=== PATIENT | male | born 1970 | race Caucasian/White ===

== ENCOUNTER → 2016-12-23 | Outpatient (CLI) | payer OTHER ==
[~2016-12-23] VITALS: Ht 180.3 cm; Wt 83.9 kg
[~2016-12-23] MED LIST: ACET500C PO; FLON0.054; FLON1SPR; LITH45TASA PO; MOTR200T44 PO; NEXI20GR PO; NORCOTAB PO; NS 1,000 ML IV SCH; PROPOFOL 200 MG/20 ML VIAL As Ordered ONE; RITA10TA PO
--- NOTE | 2016-12-23 14:04 | ROOR ---
Patient Name: Forest Forbes Procedure Date: 12/23/2016 1:43 PM Date of : 1970 Age: 46 Room: [facility] Gender: Male Note Status: Finalized Procedure: Colonoscopy Indications: Screening for colorectal malignant neoplasm Providers: Lam MORA MD Referring MD: HUGO ARIAS MD Requesting Provider: Medicines: Monitored Anesthesia Care Complications: No immediate complications. Procedure: Pre-Anesthesia Assessment: - The heart rate, respiratory rate, oxygen saturations, blood pressure, adequacy of pulmonary ventilation, and response to care were monitored throughout the procedure. The Colonoscope was introduced through the anus and advanced to the terminal ileum, with identification of the appendiceal orifice and IC valve. The colonoscopy was performed without difficulty. The patient tolerated the procedure well. The quality of the bowel preparation was fair. The bowel preparation used was SUPREP and magnesium citrate. Findings: The perianal and digital rectal examinations were normal. (EXAM: Complete, PREP: Suboptimal) The colon (entire examined portion) appeared normal. Impression: - (EXAM: Complete, PREP: Suboptimal) - The entire examined colon is normal. - No specimens collected. Recommendation: - Repeat colonoscopy in 5 years because the bowel preparation was suboptimal. - Repeat colonoscopy in 5 years for surveillance based on personal history of previous adenomatous polyps. Lam Mora MD Lam MORA MD 12/23/2016 2:04:06 PM This report has been signed electronically. Number of Addenda: 0 Note Initiated On: 12/23/2016 1:43 PM Estimated Blood Loss: Estimated blood loss: none.
[2016-12-23 14:30] VITALS: BP 128/86
== END | disposition home or self-care (01) ==
LOC: M OPP 12:06
PROVIDERS: ATTEND Internal Medicine Gastroenterology
DX: R10.9 Unspecified abdominal pain (principal); R19.5 Other fecal abnormalities; Z80.3 Family history of malignant neoplasm of breast; M19.90 Unspecified osteoarthritis, unspecified site; G47.30 Sleep apnea, unspecified; M51.9 Unspecified thoracic, thoracolumbar and lumbosacral intervertebral disc disorder; F32.9 Major depressive disorder, single episode, unspecified; Z88.8 Allergy status to other drugs, medicaments and biological substances; Z79.899 Other long term (current) drug therapy

== ENCOUNTER 2018-03-28 09:33 | Emergency (ER) | payer OTHER ==
[2018-03-28] MEDS: ACETAMINOPH W/CODEINE #3 TAB UD PO (10:54)
[2018-03-28] MEDS: ALBUTEROL SULFATE 2.5 MG/0.5 ML INH NEB SOLN NEB (10:54)
[2018-03-28] MEDS: BENZONATATE 100 MG CAP PO (10:54)
[2018-03-28 11:03] LABS: BASO % 0.5 % (0.0-1.0); EOS # 0.2 10^3/uL (0.0-0.50); EOS % 2.8 % (0.0-3.0); HEMATOCRIT 51.4 % (42.0-52.0); HEMOGLOBIN 17.7 g/dl (13.5-17.5); IMMATURE GRANULOCYTE % 0.5 % (0-3.0); LYMPH # 1.4 10^3/uL (1.5-4.5); LYMPH % 23.3 % (24.0-44.0); MEAN CORPUSCULAR HEMOGLOBIN 30.7 pg (27.0-33.0); MEAN CORPUSCULAR HGB CONC 34.4 g/dl (32.0-36.5); MEAN CORPUSCULAR VOLUME 89.1 fl (80.0-96.0); MONO # 0.9 10^3/uL (0.0-0.8); NEUTROPHILS # 3.4 10^3/uL (1.8-7.7); NEUTROPHILS % 57.9 % (36.0-66.0); PLATELET COUNT, AUTOMATED 208 10^3/uL (150-450); RED BLOOD COUNT 5.77 10^6/uL (4.30-6.10); RED CELL DISTRIBUTION WIDTH 12.6 % (11.5-14.5); WHITE BLOOD COUNT 5.8 10^3/uL (4.0-10.0)
[2018-03-28 11:31] LABS: ANION GAP 8 MEQ/L (8-16); BLOOD UREA NITROGEN 12 MG/DL (7-18); CALCIUM LEVEL 9.1 MG/DL (8.5-10.1); CARBON DIOXIDE LEVEL 27 MEQ/L (21-32); CHLORIDE LEVEL 105 MEQ/L (98-107); CREATININE FOR GFR 1.34 MG/DL (0.70-1.30); GLOMERULAR FILTRATION RATE > 60.0 (>60); GLUCOSE, FASTING 80 MG/DL (70-100); POTASSIUM SERUM 4.1 MEQ/L (3.5-5.1); SODIUM LEVEL 140 MEQ/L (136-145)
== END 2018-03-28 12:07 | disposition home or self-care (01) ==
LOC: M ED 09:33
DX: J06.9 Acute upper respiratory infection, unspecified (principal); Z79.899 Other long term (current) drug therapy; Z88.8 Allergy status to other drugs, medicaments and biological substances
CPT/HCPCS: 71046

== ENCOUNTER 2018-10-21 12:18 | Emergency (ER) | payer OTHER ==
[2018-10-21 15:03] LABS: KETONE, URINE AUTO RFX NEGATIVE (NEGATIVE); LEUKOCYTE ESTERASE UR AUTO RFX NEGATIVE (NEGATIVE); MUCUS, URINE RFX SMALL (NEGATIVE); NITRITE, URINE AUTO RFX NEGATIVE (NEGATIVE); RBC, URINE AUTO RFX 2 /HPF (0-3); SPECIFIC GRAVITY UR AUTO RFX 1.012 (1.002-1.035); SQUAM EPITHELIAL CELL UR AURFX 0 /HPF (0-6); WBC, URINE AUTO RFX 0 /HPF (0-3)
== END 2018-10-21 15:16 | disposition home or self-care (01) ==
LOC: M ED 12:18
DX: N41.9 Inflammatory disease of prostate, unspecified (principal); M19.90 Unspecified osteoarthritis, unspecified site; F90.9 Attention-deficit hyperactivity disorder, unspecified type; Z79.899 Other long term (current) drug therapy; Z88.8 Allergy status to other drugs, medicaments and biological substances
CPT/HCPCS: 81001

== ENCOUNTER 2019-06-13 19:01 | Emergency (ER) | payer OTHER ==
[~2019-06-13] VITALS: Ht 180.3 cm; Wt 84.1 kg
[~2019-06-13 19:01] MED LIST changes: +CIPR-249 PO; +HYDR-3715 PO; +METH1CHW3 PO; +METH20TA29 PO; -NORCOTAB PO; -NS 1,000 ML IV SCH; +PROAAER10 INH; -PROPOFOL 200 MG/20 ML VIAL As Ordered ONE; +RITA20TA PO; +TESS100C PO; +TRAZ1TAB12 PO; +VITA1CAP14 PO
[2019-06-13 19:02] VITALS: BP 132/73
[2019-06-13] MEDS ORDERED: METH-1022 (19:09)
[2019-06-13] MEDS ORDERED: TRAM50TA2 (19:09)
[2019-06-13] MEDS ORDERED: COLA100C5 PO (19:09)
== END 2019-06-13 20:22 | disposition home or self-care (01) ==
LOC: M ED 19:01
DX: N99.840 Postprocedural hematoma of a genitourinary system organ or structure following a genitourinary system procedure (principal); K21.9 Gastro-esophageal reflux disease without esophagitis; F90.9 Attention-deficit hyperactivity disorder, unspecified type; M51.9 Unspecified thoracic, thoracolumbar and lumbosacral intervertebral disc disorder; Z85.46 Personal history of malignant neoplasm of prostate; Z88.8 Allergy status to other drugs, medicaments and biological substances

== ENCOUNTER 2019-08-30 10:29 | Day surgery (SDC) | payer OTHER ==
[~2019-08-30] VITALS: Ht 180.3 cm; Wt 81.1 kg
[~2019-08-30 10:29] MED LIST changes: +COLA100C5 PO; +LIDOCAINE 2% INJ 100 MG/5 ML SDV (FOR ANES.) As Ordered ONE; +METH-1022; +NS 1,000 ML IV ONE; +PROPOFOL 200 MG/20 ML VIAL As Ordered ONE; +TRAM50TA2; +TRAZ10TA PO; -TRAZ1TAB12 PO
--- NOTE | 2019-08-30 11:47 | ROOR ---
Patient Name: Forest Forbes Procedure Date: 08/30/2019 11:19 AM Date of : 1970 Age: 48 Room: [facility] Gender: Male Note Status: Finalized Procedure: Total Colonoscopy to Cecum Indications: High risk colon cancer surveillance: Personal history of colonic polyps, Last colonoscopy: 2013 Providers: Vamshi García MD Referring MD: HUGO ARIAS MD Requesting Provider: Medicines: Monitored Anesthesia Care Complications: No immediate complications. Procedure: Pre-Anesthesia Assessment: - The heart rate, respiratory rate, oxygen saturations, blood pressure, adequacy of pulmonary ventilation, and response to care were monitored throughout the procedure. The Colonoscope was introduced through the anus and advanced to the cecum, identified by appendiceal orifice and ileocecal valve. The colonoscopy was performed without difficulty. The patient tolerated the procedure well. The quality of the bowel preparation was excellent. Findings: The perianal and digital rectal examinations were normal. Non-bleeding internal hemorrhoids were found during retroflexion. The hemorrhoids were small and Grade I (internal hemorrhoids that do not prolapse). Scattered small-mouthed diverticula were found in the recto-sigmoid colon, sigmoid colon and descending colon. The exam was otherwise without abnormality on direct and retroflexion views. Impression: - Non-bleeding internal hemorrhoids. - Diverticulosis in the recto-sigmoid colon, in the sigmoid colon and in the descending colon. - The examination was otherwise normal on direct and retroflexion views. - No specimens collected. - The exam was otherwise normal to the cecum. Recommendation: - Patient has a contact number available for emergencies. The signs and symptoms of potential delayed complications were discussed with the patient. Return to normal activities tomorrow. Written discharge instructions were provided to the patient. - High fiber diet. - Discharge patient to home. - Continue present medications. - Repeat colonoscopy in 5 years for surveillance. - Return to referring physician. - The findings and recommendations were discussed with the patient's family. Vamshi García MD Vamshi García MD 08/30/2019 11:47:17 AM Electronically signed by Vamshi García MD Number of Addenda: 0 Note Initiated On: 08/30/2019 11:19 AM Estimated Blood Loss: Estimated blood loss: none.
[2019-08-30 12:05] VITALS: BP 139/89
== END 2019-08-30 12:11 | disposition home or self-care (01) ==
LOC: M OPP 10:29
PROVIDERS: ATTEND Internal Medicine Gastroenterology
DX: Z12.11 Encounter for screening for malignant neoplasm of colon (principal); Z86.010 Personal history of colon polyps; K64.0 First degree hemorrhoids; K57.30 Diverticulosis of large intestine without perforation or abscess without bleeding; G47.30 Sleep apnea, unspecified; Z79.899 Other long term (current) drug therapy; Z88.8 Allergy status to other drugs, medicaments and biological substances; Z87.891 Personal history of nicotine dependence

== ENCOUNTER → 2020-07-05 | Outpatient (CLI) | payer OTHER ==
[~2020-07-05] MED LIST changes: +ESZO1TAB5 PO; +FLON1SPR NARES; -LIDOCAINE 2% INJ 100 MG/5 ML SDV (FOR ANES.) As Ordered ONE; -NS 1,000 ML IV ONE; +OMEP40CA97 PO; -PROPOFOL 200 MG/20 ML VIAL As Ordered ONE; -TRAZ10TA PO; +TRAZ1TAB12 PO
== END ==
LOC: M LABSMTC 11:55
PROVIDERS: ATTEND Anesthesiology
DX: Z01.812 Encounter for preprocedural laboratory examination (principal); Z20.828 Contact with and (suspected) exposure to other viral communicable diseases
CPT/HCPCS: C9803; U0003

== ENCOUNTER 2020-07-10 10:15 | Day surgery (SDC) | payer OTHER ==
[~2020-07-10] VITALS: Ht 175.3 cm; Wt 75.7 kg
[~2020-07-10 10:15] MED LIST changes: -ESZO1TAB5 PO; +LIDOCAINE 2% 100MG/5ML SDV (FOR ANES.) As Ordered ONE; +propofoL 200 MG/20 ML VIAL As Ordered ONE
[2020-07-10] MEDS ORDERED: ESZO1TAB5 PO (10:57)
[2020-07-10] MEDS ORDERED: fentaNYL 100 MCG/2 ML INJECTION (J3010) As Ordered ONE (11:06)
[2020-07-10] MEDS ORDERED: NS 1,000 ML IV ONE (11:15)
[2020-07-10 11:50] VITALS: BP 111/70
--- NOTE | 2020-07-19 11:37 | ROOR ---
Patient Name: Forest Forbes Procedure Date: 07/10/2020 8:50 AM Date of : 1970 Age: 49 Room: [facility] Gender: Male Note Status: Finalized Procedure: Upper Endoscopy + Biopsies Indications: Heartburn, Nausea with vomiting Providers: Vamshi García MD Referring MD: Frederic Silverio Requesting Provider: Medicines: Monitored Anesthesia Care Complications: No immediate complications. Procedure: Pre-Anesthesia Assessment: - The heart rate, respiratory rate, oxygen saturations, blood pressure, adequacy of pulmonary ventilation, and response to care were monitored throughout the procedure. The Endoscope was introduced through the mouth, and advanced to the second part of duodenum. The upper GI endoscopy was accomplished without difficulty. The patient tolerated the procedure well. Findings: The Z-line was regular and was found 45 cm from the incisors. No other significant abnormalities were identified in a careful examination of the stomach. Biopsies were taken with a cold forceps in the gastric antrum for Helicobacter pylori testing. The exam of the duodenum was otherwise normal. Impression: - Z-line regular, 45 cm from the incisors. - Biopsies were taken with a cold forceps for Helicobacter pylori testing. - The examination was otherwise normal. Recommendation: - Patient has a contact number available for emergencies. The signs and symptoms of potential delayed complications were discussed with the patient. Return to normal activities tomorrow. Written discharge instructions were provided to the patient. - High fiber diet. - Discharge patient to home. - Follow an antireflux regimen. - Continue present medications. - Await pathology results. - Telephone GI clinic for pathology results in 1 week. - Return to referring physician. - Return to my office in 6 weeks. - The findings and recommendations were discussed with the patient. Vamshi García MD 07/10/2020 11:26:03 AM Number of Addenda: 0 Note Initiated On: 07/10/2020 8:50 AM Estimated Blood Loss: Estimated blood loss: none.
== END 2020-07-10 12:02 | disposition home or self-care (01) ==
LOC: M OPP 10:15
PROVIDERS: ATTEND Internal Medicine Gastroenterology
DX: K21.9 Gastro-esophageal reflux disease without esophagitis (principal); R12 Heartburn; R11.2 Nausea with vomiting, unspecified; Z79.899 Other long term (current) drug therapy; Z88.8 Allergy status to other drugs, medicaments and biological substances
CPT/HCPCS: 43239; 88305; J3010

== ENCOUNTER → 2020-08-28 | Outpatient (CLI) | payer OTHER ==
[~2020-08-28] MED LIST changes: +ESZO1TAB5 PO; -LIDOCAINE 2% 100MG/5ML SDV (FOR ANES.) As Ordered ONE; -propofoL 200 MG/20 ML VIAL As Ordered ONE
--- NOTE | 2020-08-28 07:28 | REPVR ---
PROCEDURE INFORMATION: Exam: CT Maxillofacial Without Contrast, Sinus Exam date and time: 08/28/2020 7:12 AM Age: 49 years old Clinical indication: Pain; Other: Sinus; Additional info: Chr nasal obstruction, enlarged turbanates TECHNIQUE: Imaging protocol: CT Maxillofacial without contrast. Focus on the sinuses. Radiation optimization: All CT scans at this facility use at least one of these dose optimization techniques: automated exposure control; mA and/or kV adjustment per patient size (includes targeted exams where dose is matched to clinical indication); or iterative reconstruction. COMPARISON: No relevant prior studies available. FINDINGS: Frontal sinuses: Normal. No air-fluid levels. Ethmoid air cells: There is mild ethmoid mucosal thickening. Sphenoid sinuses: There is mild sphenoid sinus mucosal thickening. Maxillary sinuses: There is mild maxillary sinus mucosal thickening. The maxillary sinus infundibular are obscured by mucosal thickening. Nasal cavity/Septum: Unremarkable. Orbital cavity: Orbits are normal. Globes are unremarkable. Bones/joints: Unremarkable. Soft tissues: Unremarkable. IMPRESSION: Mild multifocal sinus mucosal disease. Electronically signed by: Lizzie Welch On 08/28/2020 07:27:51 AM
== END ==
LOC: M RAD 07:02
PROVIDERS: ATTEND Family Medicine
DX: J34.3 Hypertrophy of nasal turbinates (principal)

== ENCOUNTER → 2022-05-20 | Outpatient (CLI) | payer OTHER ==
[~2022-05-20] MED LIST changes: +ISOVUE-300 61% 50ML VIAL As Ordered ONE; +LIDOCAINE 1% MDV 20ML VIAL As Ordered ONE; +METH-1103 PO; -METH1CHW3 PO; +OMEP40CA4 PO; -OMEP40CA97 PO; +PROHANCE 279.3MG/ML 5ML VIAL As Ordered ONE
== END ==
LOC: M RADPRO 07:05
PROVIDERS: ATTEND Orthopaedic Surgery Adult Reconstructive Orthopaedic Surgery
DX: R93.7 Abnormal findings on diagnostic imaging of other parts of musculoskeletal system (principal); M25.851 Other specified joint disorders, right hip
CPT/HCPCS: 27093; 73723; 77002; A9576; Q9967

== ENCOUNTER 2023-12-02 11:06 | Day surgery (SDC) | payer OTHER, BC ==
[~2023-12-02] VITALS: Ht 180.3 cm; Wt 83.4 kg
[~2023-12-02 11:06] MED LIST changes: +CYCL-707 PO; -ISOVUE-300 61% 50ML VIAL As Ordered ONE; -LIDOCAINE 1% MDV 20ML VIAL As Ordered ONE; +NS 1,000 ML IV ONE; +PANT40TA29 PO; -PROHANCE 279.3MG/ML 5ML VIAL As Ordered ONE; +VIAG100T PO
[2023-12-02] MEDS ORDERED: LIDOCAINE 2% 100MG/5ML SDV (FOR ANES.) As Ordered ONE (11:50)
[2023-12-02] MEDS ORDERED: fentaNYL 100 MCG/2 ML INJECTION As Ordered ONE (11:50)
[2023-12-02] MEDS ORDERED: propofoL 200 MG/20 ML VIAL As Ordered ONE (11:50)
[2023-12-02 12:35] VITALS: TEMP 97.3
[2023-12-02 12:50] VITALS: BP 128/74; O2SAT 98
== END 2023-12-02 13:01 | disposition home or self-care (01) ==
LOC: M OPP 11:06
PROVIDERS: ATTEND Internal Medicine Gastroenterology
DX: Z12.11 Encounter for screening for malignant neoplasm of colon (principal); Z86.010 Personal history of colon polyps; K63.5 Polyp of colon; K64.8 Other hemorrhoids; K57.30 Diverticulosis of large intestine without perforation or abscess without bleeding; K20.90 Esophagitis, unspecified without bleeding; R12 Heartburn; G47.30 Sleep apnea, unspecified; Z99.89 Dependence on other enabling machines and devices; Z79.891 Long term (current) use of opiate analgesic; Z79.899 Other long term (current) drug therapy; Z88.8 Allergy status to other drugs, medicaments and biological substances
CPT/HCPCS: 43239; 45385; 88305; J3010